=== PATIENT | male | born 1990 | race Caucasian/White ===

== ENCOUNTER 2017-05-18 14:28 | Emergency (ER) | payer MEDICAID ==
[~2017-05-18] VITALS: Ht 170.2 cm; Wt 109.1 kg
[2017-05-18 17:52] VITALS: BP 127/77
== END 2017-05-18 18:37 | disposition home or self-care (01) ==
LOC: EMS 14:31
DX: J18.9 Pneumonia, unspecified organism (principal); R19.7 Diarrhea, unspecified; F17.210 Nicotine dependence, cigarettes, uncomplicated
CPT/HCPCS: 71020; 99284